=== PATIENT | female | born 1970 | race Caucasian/White ===

== ENCOUNTER 2018-04-28 07:19 | Day surgery (SDC) | payer OTHER ==
--- NOTE | 2018-04-27 14:37 | PREOPHP ---
DATE OF ADMISSION: 04/28/2018 HISTORY OF PRESENT ILLNESS: This 47-year-old patient is admitted for elective cataract surgery of th e left eye. The patient has had decreased vision in both eyes over the past years' time. Patient de nies prior history of eye disease or injury. She does have a positive history for insulin-dependent diabetes mellitus and has been on medication for the past 7 years. The patient is also being treated for systemic hypertension and hypercholesterolemia. CURRENT MEDICATIONS INCLUDE: 1. Insulin. 2. [place]. 3. Pravastatin. 4. Fenofibrate. 5. Losartan. 6. Januvia. 7. Metformin. ALLERGIES: THE PATIENT IS ALLERGIC TO HALDOL, WELLBUTRIN AND ABILIFY. PHYSICAL EXAMINATION: The visual acuity best corrected is 20/40 in the right eye and 20/80 in the le ft eye. Slit lamp examination reveals moderate nuclear sclerosis and dense posterior subcapsular cat aract greater in the left eye than the right eye. Applanation tonometry is 12 mm in the right eye an d 13 mm in the left eye. Examination of the retina appears grossly within normal limits. There is s ome difficulty seeing the retina due to the posterior subcapsular opacity. DIAGNOSIS: Posterior subcapsular cataract, left eye. PLAN: Cataract extraction with lens implant, left eye. The risks and alternatives to the surgery chua ve been discussed with the patient as well as the hope for improvement of visual acuity leading to gr eater ability to perform activities of daily living. The patient agrees to proceed with surgery. Dictated By: YAA SHERWOOD/NADIA Conf#: [id number] DID#: [id number]
[2018-04-27 15:46] VITALS: Ht 165.1 cm; Wt 97.7 kg
[2018-04-28] VITALS (7 sets, daily range): BP systolic 105–114; BP diastolic 57–69; PULSE 70–77; RESP 12–20
[~2018-04-28] VITALS: Ht 165.1 cm; Wt 97.7 kg
[~2018-04-28 07:19] MED LIST: CYCLOPENTOLATE/PHENYLEPH 2 ML OPH OPER SCH; DICLOFENAC 0.1% 2.5 ML OPH OPER SCH; MOXIFLOXACIN 0.5% 3 ML OPH OPER SCH; SOD CHLORIDE 0.9% 1,000 ML IV SCH; TROPICAMIDE 1% 15 ML OPH OPER SCH
[2018-04-28] MEDS ORDERED: ADMELOG SUBCUTANE (08:33)
[2018-04-28] MEDS ORDERED: [UNRECOGNIZED DRUG - OTHER] SC* (08:38)
[2018-04-28] MEDS ORDERED: ADMELOG SUBCUTANE* (08:38)
[2018-04-28] MEDS ORDERED: INSU300I SQ (08:39)
[2018-04-28] MEDS ORDERED: SITA100T11 PO (08:40)
[2018-04-28] MEDS ORDERED: LOSA25TA12 PO (08:41)
[2018-04-28] MEDS ORDERED: ALBU8.5H8 INH (08:43)
[2018-04-28] MEDS ORDERED: DAPA10TA PO (08:43)
[2018-04-28] MEDS ORDERED: PRAV40TA76 PO (08:44)
[2018-04-28] MEDS ORDERED: METF-849 PO (08:45)
[2018-04-28] MEDS ORDERED: PIOG30TA71 PO (08:45)
[2018-04-28] MEDS ORDERED: FENO200 PO (08:46)
[2018-04-28] MEDS ORDERED: LITH600C2 PO (08:46)
[2018-04-28] MEDS ORDERED: LIDOCAINE 4% (MPF) 5 ML INJ ONE (09:22)
[2018-04-28] MEDS ORDERED: CARBACHOL 0.01% 1.5 ML OPH INJ ONE (09:22)
[2018-04-28] MEDS ORDERED: TETRACAINE 0.5% 4 ML OPH ONE (09:22)
[2018-04-28] MEDS ORDERED: NA HYALURONATE/CHONDROITIN 0.5 ML SYG ONE (09:22)
--- NOTE | 2018-04-28 09:23 | PREAC ---
Date/Time of Note Date/Time of Note DATE: 04/28/18 TIME: 09:23 Anesthesia Eval and Record Evaluation Time Pre-Procedure Interview DATE: 04/28/18 TIME: 09:23 Age 47 Sex female NPO: 8 hrs Preoperative diagnosis Left eye cataract Planned procedure Cataract extraction with IOL implant Past Medical History Past Medical History: Includes Cardio: HTN, Dyslipidemia Endo: Diabetes GI: Obesity Psych: Depression Recreational drugs: Heroin (H/O heroin abuse) Surgery & Anesthesia Issues No known issue Meds Anticoagulation: No Beta Teagan within 24 hr: No Reason Beta Teagan not given: Pt. not on B-Teagan Reported Medications Fenofibrate* (Fenofibrate*) 200 Mg Cap, 200 MG PO DAILY, CAP 04/28/18 [place] Carbonate* ([place] Carbonate*) 600 Mg Capsule, 600 MG PO DAILY, CAP 04/28/18 Pioglitazone Hcl* (Pioglitazone Hcl*) 30 Mg Tablet, 30 MG PO DAILY, TAB 04/28/18 Metformin* (Glucophage*) 500 Mg Tab, 500 MG PO BID WITH MEALS, #90 TAB 04/28/18 Pravastatin Sodium* (Pravastatin Sodium*) 40 Mg Tablet, 40 MG PO HS, TAB 04/28/18 Albuterol Sulfate* (Proair HFA*) 8.5 Gm Hfa.aer.ad, 2 PUFF INH Q4H PRN for WHEEZING AND SOB, #1 INHALER 04/28/18 Dapagliflozin Propanediol (Farxiga) 10 Mg Tablet, 10 MG PO DAILY, #30 TAB 04/28/18 Losartan Potassium* (Losartan Potassium*) 25 Mg Tablet, 25 MG PO DAILY 04/28/18 Sitagliptin* (Januvia*) 100 Mg Tablet, 100 MG PO DAILY, #30 TAB 04/28/18 Insulin Glargine,Hum.rec.anlog (Jeny Soliz) 300 Unit/1 Ml Insuln.pen, 36 UNIT SQ DAILY, EA 04/28/18 [Admelog] No Conflict Check, 17.5 UNITS SUBCUTANE* DAILY 04/28/18 Discontinued Reported Medications [Admelog] No Conflict Check, 35 UNITS SUBCUTANE DAILY 04/28/18 Current Medications Diclofenac Sodium (Voltaren 0.1%) 1 drop Q5 MIN X 3 OPER Last administered on 04/28/18at 07:58; Admin Dose 1 DROP; Start 04/28/18 at 07:00 Tropicamide (Mydriacyl 1%) 1 drop Q5 MIN X3 OPER Last administered on 04/28/18at 07:58; Admin Dose 1 DROP; Start 04/28/18 at 07:00 Moxifloxacin HCl (Vigamox) 1 drop Q5 MIN X 3 OPER Last administered on 04/28/18at 07:58; Admin Dose 1 DROP; Start 04/28/18 at 07:00 Cyclopentolate/ Phenylephrine (Cyclomydril Oph 2 ml) 1 drop Q5 MIN X 3 OPER Last administered on 04/28/18at 07:58; Admin Dose 1 DROP; Start 04/28/18 at 07:00 Sodium Chloride 1,000 ml @ 25 mls/hr Q24H IV ; Start 04/28/18 at 07:00 Meds reviewed: Yes Allergies Coded Allergies: aripiprazole (Verified Adverse Reaction, Severe, DROWSY & SLEEPY, 04/28/18) PER PT bupropion (Verified Adverse Reaction, Severe, CRAMPS, 04/28/18) PER PT haloperidol (Unverified Adverse Reaction, Unknown, VISIONS & HALLUCINATION, 04/28/18) PER PT Allergies Reviewed: Yes Labs/Studies Labs Reviewed: Reviewed by anesthesiologist test: Negative Pre-procedure Exam Last vitals Vital Signs Date Temp Pulse Resp B/P (MAP) Pulse Ox O2 O2 Flow FiO2 Time Delivery Rate 04/28/18 97.6 73 16 106/60 97 Room Air 08:24 (75) Airway: Adequate mouth opening Mallampati: Mallampati II Teeth: Normal Lung: Normal Heart: Normal ASA Physical Status ASA physical status: 3 Emergency: None Planned Anesthetic General/MAC: MAC Planned Pain Management Parenteral pain med Pre-operative Attestations Prior to commencing anesthesia and surgery, the patient was re-evaluated, there was verification of: *The patient's identity *The results of appropriate recent lab work and preoperative vital signs *The above evaluation not changing prior to induction *Anesthetic plan, risk benefits, alternative and complications discussed with patient/family; questions answered; patient/family understands, accepts and wishes to proceed. SUNDAR VALDEZ MD Apr 28, 2018 09:23
[2018-04-28] MEDS ORDERED: FENTAnyl 50 MCG/ML VIAL IV PRN ×3 (09:30)
[2018-04-28] MEDS ORDERED: DIPHENHYDRAMINE 50 MG INJ IV PRN (09:30)
[2018-04-28] MEDS ORDERED: EPHEDrine SULFATE 50 MG/5 ML SYG IV PRN (09:30)
[2018-04-28] MEDS ORDERED: OXYCODONE/ACETAMINOPHEN (5/325) TAB PO PRN ×2 (09:30)
[2018-04-28] MEDS ORDERED: MEPERIDINE 25 MG INJ IV PRN (09:30)
[2018-04-28] MEDS ORDERED: LABETALOL HCL 20MG INJ IV PRN (09:30)
[2018-04-28] MEDS ORDERED: ONDANSETRON 4 MG INJ IV PRN (09:30)
[2018-04-28] MEDS ORDERED: hydrALAzine 20 MG INJ IV PRN (09:30)
[2018-04-28] MEDS ORDERED: METOCLOPRAMIDE 10 MG INJ IV PRN (09:30)
[2018-04-28] MEDS ORDERED: MIDAZOLAM 1 MG/ML 2 ML INJ IV PRN (09:30)
[2018-04-28] MEDS ORDERED: PROPOFOL 20 ML ONE (09:34)
--- NOTE | 2018-04-28 10:26 | SIPON ---
Date/Time of Note Date/Time of Note DATE: 04/28/18 TIME: 10:24 Operative Report Preoperative Diagnosis posterior subcapsular cataract os Postoperative Diagnosis same Operation/Procedure Performed cagtaract extraction with lens implant os Surgeon yaa ellsworth pharmacy sales assistant none Anesthesia: MAC Estimated blood loss: none Transfusion Required none Specimen none Grafts/Implants posterior chamber lens implant Complications none YAA ELLSWORTH MD Apr 28, 2018 10:26
--- NOTE | 2018-04-28 10:50 | PAC ---
Date/Time of Note Date/Time of Note DATE: 04/28/18 TIME: 10:50 Post-Anesthesia Notes Post-Anesthesia Note Last documented vital signs Vital Signs Date Temp Pulse Resp B/P (MAP) Pulse Ox O2 O2 Flow FiO2 Time Delivery Rate 04/28/18 72 17 112/65 98 Room Air 10:31 (81) 04/28/18 97.6 08:24 Activity: WNL Respiratory function: WNL Cardiovascular function: WNL Mental status: Baseline Pain reasonably controlled: Yes Hydration appropriate: Yes Nausea/Vomiting absent: Yes SUNDAR VALDEZ MD Apr 28, 2018 10:50
--- NOTE | 2018-04-28 11:03 | OPR ---
DATE OF OPERATION: 04/28/2018 PREOPERATIVE DIAGNOSIS: Posterior subcapsular cataract, left eye. POSTOPERATIVE DIAGNOSIS: Posterior subcapsular cataract, left eye. OPERATION PERFORMED: Cataract extraction with lens implant, left eye. ANESTHESIA: Local standby. ANESTHESIOLOGIST: Dr. Wade. PROCEDURE: The patient was brought to the operating room and placed on the table with an IV in place and the patient attached to an ramp attendant. Oxygen was given via face mask. After some intravenous sedation was administered, local anesthesia was given using Xylocaine 2% with epinephrine, mixed with Marcaine 0.5%. This was given in a lid block and retrobulbar injection. The patient was then prepped and draped in the usual sterile manner. A wire lid speculum was inserted between the lids of the left eye. A Superblade was used to enter th e anterior chamber at the corneoscleral limbus at the 10:30 o'clock position. A separate incision wa s made using a 3.0-mm keratome which entered the corneoscleral junction at the 12 o'clock position. Through this 3-mm opening, an irrigating cystotome was introduced into the anterior chamber. The elia mber was filled with Viscoat and an anterior capsulotomy was performed. Balanced salt solution was t hen used for hydrodissection of the lens. A phacoemulsification handpiece was then brought into the field and introduced into the anterior chamber. The lens nucleus was emulsified using a deep groove and cracking the nucleus into quadrants. Following this, each quadrant was aspirated and emulsified at the pupillary margin. There was noted to be an epinuclear layer and cortical layer remaining after the nucleus had been rem lynn. However, the pupil constricted to between 2 and 3 mm and therefore careful irrigation aspirati on was used to remove lens cortical and epinuclear material. After this was completed, the irrigation/aspiration handpiece was brought to the field, introduced in to the posterior chamber, and the lens cortical material was removed. When this was completed, addit ional Viscoat was injected into the anterior and posterior chambers. The patient was noted to have a residual film on the posterior capsule centrally. An attempt was mad e to vacuum this off of the posterior capsule using a polishing technique. This was partially succes sful. It was decided not to proceed with further manipulation to avoid breaking the posterior capsul e. If necessary the patient would undergo a YAG laser posterior capsulotomy following resolution of the postoperative inflammation. The 3-mm opening had its internal lips enlarged, and then the posterior chamber intraocular lens namrata uring 22.5 diopters ([employer] model LI61AO) was then injected into the posterior c hamber using the lens injector system. After the leading haptic was introduced into the capsular bag and the lens optic was present in the center of the eye, the injector was removed and the trailing h aptic was grasped with non-toothed forceps and introduced into the capsular fold superiorly. A Hoverink ey hook was then used to rotate the intraocular lens so that the lips were oriented in the horizontal meridian. One 10-0 nylon suture was placed across the wound. Prior to tying, the irrigation/aspiration handpiece was reintroduced into the anterior chamber to rem ove the Viscoat. Miochol was instilled to constrict the pupil, and then the 10-0 nylon suture was ti ed. The ends were cut short and then the knot was buried. Then, 0.5 mL of dexamethasone and 0.5 mL of Ancef were injected into the sub-Tenon space in the infer ior fornix. Ciloxan drops were then placed on the surface of the eye. The speculum was removed and a patch was applied. The patient then left the operating room in satisfactory condition. Dictated By: YAA SHERWOOD/NADIA Conf#: [id number] DID#: [id number] CC: YAA ELLSWORTH MD;*EndCC*
== END 2018-04-28 11:34 | disposition home or self-care (01) ==
LOC: SDS 07:19
PROVIDERS: ATTEND Ophthalmology
DX: H25.042 Posterior subcapsular polar age-related cataract, left eye (principal); I10 Essential (primary) hypertension; E11.9 Type 2 diabetes mellitus without complications; E78.5 Hyperlipidemia, unspecified
CPT/HCPCS: 66984; 82962; V2632; Z7512; Z7610

== ENCOUNTER 2018-08-18 06:38 | Day surgery (SDC) | payer OTHER ==
--- NOTE | 2018-08-17 13:02 | PREOPHP ---
DATE OF ADMISSION: 08/18/2018 HISTORY OF PRESENT ILLNESS: This 47-year-old patient is admitted for elective cataract surgery of th e right eye. The patient has had decreased vision in both eyes over the last 1 to 2 years and she de nies having prior history of eye disease or injury. The patient's systemic history is positive for i nsulin-dependent diabetes mellitus for the past 7 years. The patient is also being treated for syste carlos hypertension and hypercholesterolemia. CURRENT MEDICATIONS: Include: 1. Insulin. 2. [place]. 3. Pravastatin. 4. Fenofibrate. 5. Losartan. 6. Januvia. 7. Metformin. ALLERGIES: 1. HALDOL. 2. WELLBUTRIN. 3. ABILIFY. PHYSICAL EXAMINATION: EYES: The visual acuity with best correction is 20/80 in the right eye and 20/20 in the left eye. S lit lamp examination reveals a posterior chamber intraocular lens in appropriate position in the left eye. The right eye has evidence of new moderate nuclear sclerosis and a dense posterior subcapsular cataract. Applanation tonometry is 12 mmHg. Examination of the retina is within normal limits with no evidence of active diabetic retinopathy. DIAGNOSIS: Nuclear sclerotic and posterior subcapsular cataract, right eye. PLAN: Cataract extraction with lens implant, right eye. The risks and alternatives to the surgery h ave been discussed with the patient as well as the hope for improvement of visual acuity leading to g reater ability to perform activities of daily living. The patient understands this and agrees to pro ceed with surgery. Dictated By: YAA SHERWOOD/NADIA Conf#: [id number] DID#: [id number]
[2018-08-18] VITALS (9 sets, daily range): BP systolic 100–141; BP diastolic 52–78; PULSE 90–99; RESP 13–16; Ht 162.6 cm; Wt 101.1 kg
[~2018-08-18] VITALS: Ht 162.6 cm; Wt 101.1 kg
[~2018-08-18 06:38] MED LIST changes: +ADMELOG SUBCUTANE*; +ALBU8.5H8 INH; -CYCLOPENTOLATE/PHENYLEPH 2 ML OPH OPER SCH; +DAPA10TA PO; -DICLOFENAC 0.1% 2.5 ML OPH OPER SCH; +FENO200 PO; +INSU300I SQ; +LITH600C2 PO; +LOSA25TA12 PO; +METF-849 PO; -MOXIFLOXACIN 0.5% 3 ML OPH OPER SCH; +PIOG30TA71 PO; +PRAV40TA76 PO; +SITA100T11 PO; -SOD CHLORIDE 0.9% 1,000 ML IV SCH; -TROPICAMIDE 1% 15 ML OPH OPER SCH
[2018-08-18] MEDS ORDERED: LOSA25TA12 PO (07:27)
[2018-08-18] MEDS ORDERED: LIT300 PO (07:27)
[2018-08-18] MEDS ORDERED: FENO200 PO (07:28)
[2018-08-18] MEDS ORDERED: SITA100T11 PO (07:28)
[2018-08-18] MEDS ORDERED: INSU100I12 SQ (07:29)
[2018-08-18] MEDS ORDERED: INSU300I SQ (07:29)
[2018-08-18] MEDS ORDERED: DICLOFENAC 0.1% 2.5 ML OPH ONE (07:33)
[2018-08-18] MEDS ORDERED: CYCLOPENTOLATE/PHENYLEPH 2 ML OPH ONE (07:33)
[2018-08-18] MEDS ORDERED: MOXIFLOXACIN 0.5% 3 ML OPH ONE (07:35)
[2018-08-18] MEDS ORDERED: TROPICAMIDE 1% 15 ML OPH ONE (07:35)
[2018-08-18] MEDS ORDERED: DICLOFENAC 0.1% 2.5 ML OPH OPER SCH (09:00)
[2018-08-18] MEDS ORDERED: CYCLOPENTOLATE/PHENYLEPH 2 ML OPH OPER SCH (09:00)
[2018-08-18] MEDS ORDERED: MOXIFLOXACIN 0.5% 3 ML OPH OPER SCH (09:00)
[2018-08-18] MEDS ORDERED: TROPICAMIDE 1% 15 ML OPH OPER SCH (09:00)
[2018-08-18] MEDS ORDERED: INSULIN REGULAR, HUMAN 100 UNIT/1 ML 3ML VIAL SC ONE (09:00)
--- NOTE | 2018-08-18 10:59 | PREAC ---
Date/Time of Note Date/Time of Note DATE: 08/18/18 TIME: 10:58 Anesthesia Eval and Record Evaluation Time Pre-Procedure Interview DATE: 08/18/18 TIME: 10:58 Age 47 Sex female NPO: 8 hrs Preoperative diagnosis RIGHT EYE CATARACT Planned procedure RIGHT EYE CATARACT EXTRACTION WITH IOL PLACEMENT Past Medical History Past Medical History: Includes Cardio: HTN, Dyslipidemia Endo: Diabetes Pulm: Asthma Psych: Bipolar Surgery & Anesthesia Issues No known issue Meds Anticoagulation: No Beta Teagan within 24 hr: No Reason Beta Teagan not given: Pt. not on B-Teagan Reported Medications Insulin Glargine,Hum.rec.anlog ([place] Solostar) 300 Unit/1 Ml Insuln.pen, 72 UNIT SQ QAM, EA 08/18/18 Insulin Lispro (Humalog Kwikpen U-100) 100 Unit/1 Ml Insuln.pen, 34 UNIT SQ QAM, EA ADMELOG 08/18/18 Fenofibrate* (Fenofibrate*) 200 Mg Cap, 200 MG PO DAILY, CAP 08/18/18 Sitagliptin* (Januvia*) 100 Mg Tablet, 100 MG PO DAILY, #30 TAB 08/18/18 Losartan Potassium* (Losartan Potassium*) 25 Mg Tablet, 25 MG PO DAILY, TAB 08/18/18 [place] Carbonate* ([place]*) 300 Mg Cap, 300 MG PO BID, CAP 08/18/18 Discontinued Reported Medications Fenofibrate* (Fenofibrate*) 200 Mg Cap, 200 MG PO DAILY, CAP 04/28/18 [place] Carbonate* ([place] Carbonate*) 600 Mg Capsule, 600 MG PO DAILY, CAP 04/28/18 Pioglitazone Hcl* (Pioglitazone Hcl*) 30 Mg Tablet, 30 MG PO DAILY, TAB 04/28/18 Metformin* (Glucophage*) 500 Mg Tab, 500 MG PO BID WITH MEALS, #90 TAB 04/28/18 Pravastatin Sodium* (Pravastatin Sodium*) 40 Mg Tablet, 40 MG PO HS, TAB 04/28/18 Albuterol Sulfate* (Proair HFA*) 8.5 Gm Hfa.aer.ad, 2 PUFF INH Q4H PRN for WHEEZING AND SOB, #1 INHALER 04/28/18 Dapagliflozin Propanediol (Farxiga) 10 Mg Tablet, 10 MG PO DAILY, #30 TAB 04/28/18 Losartan Potassium* (Losartan Potassium*) 25 Mg Tablet, 25 MG PO DAILY 04/28/18 Sitagliptin* (Januvia*) 100 Mg Tablet, 100 MG PO DAILY, #30 TAB 04/28/18 Insulin Glargine,Hum.rec.anlog (Yarielcarmenruthie Lynndayanara) 300 Unit/1 Ml Insuln.pen, 36 UNIT SQ DAILY, EA 04/28/18 [Admelog] No Conflict Check, 17.5 UNITS SUBCUTANE* DAILY 04/28/18 Current Medications Diclofenac Sodium (Voltaren 0.1%) 1 drop Q5 MIN X 3 OPER Last administered on 08/18/18at 07:45; Admin Dose 1 DROP; Start 08/18/18 at 09:00 Tropicamide (Mydriacyl 1%) 1 drop Q5 MIN X3 OPER Last administered on 08/18/18at 07:45; Admin Dose 1 DROP; Start 08/18/18 at 09:00 Moxifloxacin HCl (Vigamox) 1 drop Q5 MIN X 3 OPER Last administered on 08/18/18at 07:45; Admin Dose 1 DROP; Start 08/18/18 at 09:00 Cyclopentolate/ Phenylephrine (Cyclomydril Oph 2 ml) 1 drop Q5 MIN X 3 OPER Last administered on 08/18/18at 07:44; Admin Dose 1 DROP; Start 08/18/18 at 09:00 Meds reviewed: Yes Allergies Coded Allergies: aripiprazole (Verified Adverse Reaction, Severe, DROWSY & SLEEPY, 08/18/18) PER PT bupropion (Verified Adverse Reaction, Severe, CRAMPS, 08/18/18) PER PT haloperidol (Unverified Adverse Reaction, Unknown, VISIONS & HALLUCINATION, 08/18/18) PER PT Allergies Reviewed: Yes Labs/Studies Labs Reviewed: Reviewed by anesthesiologist test: N/A Pre-procedure Exam Last vitals Vital Signs Date Temp Pulse Resp B/P (MAP) Pulse Ox O2 O2 Flow FiO2 Time Delivery Rate 08/18/18 97.0 99 16 121/76 97 07:30 (91) Airway: Adequate mouth opening, Adequate thyromental dist Mallampati: Mallampati II Teeth: Normal Lung: Normal Heart: Normal ASA Physical Status ASA physical status: 2 Emergency: None Planned Anesthetic General/MAC: MAC Planned Pain Management Parenteral pain med Pre-operative Attestations Prior to commencing anesthesia and surgery, the patient was re-evaluated, there was verification of: *The patient's identity *The results of appropriate recent lab work and preoperative vital signs *The above evaluation not changing prior to induction *Anesthetic plan, risk benefits, alternative and complications discussed with patient/family; questions answered; patient/family understands, accepts and wis hes to proceed. Uri Barrientos M.D. Aug 18, 2018 10:59
[2018-08-18] MEDS ORDERED: IPRATROPIUM (NEB) 0.5 MG/2.5 ML AMP HHN PRN (11:00)
[2018-08-18] MEDS ORDERED: MIDAZOLAM 1 MG/ML 2 ML INJ IV PRN (11:00)
[2018-08-18] MEDS ORDERED: OXYCODONE/ACETAMINOPHEN (5/325) TAB PO PRN ×2 (11:00)
[2018-08-18] MEDS ORDERED: ALBUTEROL 0.083% (NEB) 2.5 MG/3 ML AMP HHN PRN (11:00)
[2018-08-18] MEDS ORDERED: TRIMETHOBENZAMIDE 100 MG/ML VIAL IM PRN (11:00)
[2018-08-18] MEDS ORDERED: FENTAnyl 50 MCG/ML VIAL IV PRN ×3 (11:00)
[2018-08-18] MEDS ORDERED: HYDROmorphONE 1 MG/5 ML IV SYRINGE IV PRN ×3 (11:00)
[2018-08-18] MEDS ORDERED: MEPERIDINE 25 MG INJ IV PRN (11:00)
[2018-08-18] MEDS ORDERED: LABETALOL HCL 20MG INJ IV PRN (11:00)
[2018-08-18] MEDS ORDERED: ONDANSETRON 4 MG INJ IV PRN (11:00)
[2018-08-18] MEDS ORDERED: DIPHENHYDRAMINE 50 MG INJ IV PRN (11:00)
[2018-08-18] MEDS ORDERED: hydrALAzine 20 MG INJ IV PRN (11:00)
[2018-08-18] MEDS ORDERED: EPHEDrine 25 MG/5 ML SYG IV PRN (11:00)
[2018-08-18] MEDS ORDERED: FENTAnyl 50 MCG/ML VIAL ONE (11:15)
[2018-08-18] MEDS ORDERED: TETRACAINE 0.5% 4 ML OPH RIGHT EYE ONE (11:26)
[2018-08-18] MEDS ORDERED: LIDOCAINE 4% (MPF) 5 ML INJ INJ ONE (11:26)
[2018-08-18] MEDS ORDERED: CARBACHOL 0.01% 1.5 ML OPH INJ RIGHT EYE ONE (11:27)
[2018-08-18] MEDS ORDERED: NA HYALURONATE/CHONDROITIN 0.5 ML SYG RIGHT EYE ONE (11:27)
[2018-08-18] MEDS ORDERED: LIDOCAINE 100 MG SYRINGE ONE (11:39)
[2018-08-18] MEDS ORDERED: PROPOFOL 20 ML ONE (11:39)
--- NOTE | 2018-08-18 11:46 | PAC ---
Date/Time of Note Date/Time of Note DATE: 08/18/18 TIME: 11:46 Post-Anesthesia Notes Post-Anesthesia Note Last documented vital signs Vital Signs Date Temp Pulse Resp B/P (MAP) Pulse Ox O2 O2 Flow FiO2 Time Delivery Rate 08/18/18 97.0 99 16 121/76 97 07:30 (91) Activity: WNL Respiratory function: WNL Cardiovascular function: WNL Mental status: Baseline Pain reasonably controlled: Yes Hydration appropriate: Yes Nausea/Vomiting absent: Yes Uri Barrientos M.D. Aug 18, 2018 11:46
--- NOTE | 2018-08-18 11:48 | SIPON ---
Date/Time of Note Date/Time of Note DATE: 08/18/18 TIME: 11:47 Operative Report Preoperative Diagnosis posterior subcapsular cataract od Postoperative Diagnosis samed Operation/Procedure Performed cataract extraction with lens implant od Surgeon yaa ellsworth hr administrative assistant none Anesthesia: MAC Estimated blood loss: none Transfusion Required none Specimen none Grafts/Implants posterior chamber lens implant Complications none YAA ELLSWORTH MD Aug 18, 2018 11:48
--- NOTE | 2018-08-18 12:49 | OPR ---
DATE OF OPERATION: 08/18/2018 PREOPERATIVE DIAGNOSIS: Posterior subcapsular cataract, right eye. POSTOPERATIVE DIAGNOSIS: Posterior subcapsular cataract, right eye. PROCEDURE PERFORMED: Cataract extraction with lens implant, right eye. SURGEON: Yaa Beaver MD ANESTHESIA: Uri Barrientos MD DESCRIPTION OF PROCEDURE: The patient was brought to the operating room and placed on the table with an IV in place and the patient attached to an polysom tech. Oxygen was given via face mask. After some intravenous sedation was administered, local anesthesia was given using Xylocaine 2% with epinephrine, mixed with Marcaine 0.5%. This was given in a lid block and retrobulbar injection. The p atient was then prepped and draped in the usual sterile manner. A wire lid speculum was inserted between the lids of the right eye. A Superblade was used to enter th e anterior chamber at the corneoscleral limbus at the 10:30 o'clock position. A separate incision was made using a 3.0-mm keratome which entered the corneoscleral junction at the 12 o'clock position. Th rough this 3-mm opening, an irrigating cystotome was introduced into the anterior chamber. The chambe r was filled with Viscoat and an anterior capsulotomy was performed. Balanced salt solution was then used for hydrodissection of the lens. A phacoemulsification handpiece was then brought into the fiel d and introduced into the anterior chamber. The lens nucleus was emulsified using a deep groove and c racking the nucleus into quadrants. Following this, each quadrant was aspirated and emulsified at the pupillary margin. After this was completed, the irrigation/aspiration handpiece was brought to the field, introduced in to the posterior chamber, and the lens cortical material was removed. When this was completed, additi onal Viscoat was injected into the anterior and posterior chambers. The 3-mm opening had its internal lips enlarged, and then the posterior chamber intraocular lens namrata uring 22.5 diopters ([employer] model L161AO) was then injected into the posterior c hamber using the lens injector system. After the leading haptic was introduced into the capsular bag and the lens optic was present in the center of the eye, the injector was removed and the trailing chua ptic was grasped with non-toothed forceps and introduced into the capsular fold superiorly. A [place] hook was then used to rotate the intraocular lens so that the lips were oriented in the horizontal m eridian. One 10-0 nylon suture was placed across the wound. Prior to tying, the irrigation/aspiration handpiece was reintroduced into the anterior chamber to rem ove the Viscoat. Miochol was instilled to constrict the pupil, and then the 10-0 nylon suture was tie d. The ends were cut short and then the knot was buried. Then, 0.5 mL of dexamethasone and 0.5 mL of Ancef were injected into the sub-Tenon space in the infer ior fornix. Ciloxan drops were then placed on the surface of the eye. The speculum was removed and a patch was applied. The patient then left the operating room in satisfactory condition. Dictated By: YAA SHERWOOD/NADIA Conf#: [id number] DID#: [id number]
== END 2018-08-18 13:05 | disposition home or self-care (01) ==
LOC: SDS 06:38
PROVIDERS: ATTEND Ophthalmology
DX: H25.041 Posterior subcapsular polar age-related cataract, right eye (principal); E11.9 Type 2 diabetes mellitus without complications; I10 Essential (primary) hypertension; E78.5 Hyperlipidemia, unspecified; J45.909 Unspecified asthma, uncomplicated; Z79.82 Long term (current) use of aspirin; Z79.84 Long term (current) use of oral hypoglycemic drugs; Z79.4 Long term (current) use of insulin
CPT/HCPCS: 66984; 82962; J1815; J2001; J3010; V2632; Z7512; Z7610